=== PATIENT | female | born 1970 | race Caucasian/White ===

== ENCOUNTER → 2019-03-25 | Outpatient (CLI) | payer OTHER ==
--- NOTE | 2019-03-25 11:07 | Diagnostic Imaging Report ---
INDICATION: Screening for osteoporosis. COMPARISON: None. FINDINGS: The bone mineral density of the hips and spine was measured. There are no prior studies available for comparison. The T-score for the spine is 1.6. The total T-score for the left hip is 0.5 and for the right hip is 0.0. The T-score for the left femoral neck is -0.8 and for the right femoral neck -1.0. All of these values are within normal limits. AP Spine L1-L4: [BMD (g/cm2): 1.396] [T-Score: 1.6] [Z-Score: 1.0] [BMD Previous: N/A] [BMD % Change: N/A] LT Hip Neck: [BMD (g/cm2): 0.922] [T-Score: -0.8] [Z-Score: -0.7] LT Hip Total: [BMD (g/cm2):1.068] [T-Score:0.5] [Z-Score: 0.2] [BMD Previous: N/A] [BMD % Change: N/A] RT Hip Neck: [BMD (g/cm2):0.898] [T-Score:-1.0] [Z-Score:-0.9] RT Hip Total: [BMD (g/cm2):1.004] [T-score:0.0] [Z-Score:-0.3] [BMD Previous:N/A] [BMD % Change:N/A] *Indicates significant change from prior examination based on 95% confidence level. World Health Organization criteria for BMD interpretation classify patients as Normal (T-score at or above -1.0), Osteopenic (T-score between -1.0 and -2.5) or Osteoporotic (T-score at or below -2.5). LIMITATIONS AND MODIFICATION: None. FRACTURE RISK (FRAX SCORE): The ten year probability of (%): Major Osteoporotic Fracture: [N/A] Hip Fracture: [N/A] IMPRESSION: 1. The bone mineral density of the hips and spine is within normal limits. 2. See below National Osteoporosis Foundation guidelines on when to potentially initiate pharmacologic therapy. Based on the National Osteoporosis Foundation Guidelines, pharmacologic treatment should be initiated in any of the following, unless clinical conditions suggest otherwise: * Any patient with prior fragility fracture of the hip or vertebrae. A spine fracture indicates 5X risk for subsequent spine fracture and 2X risk for subsequent hip fracture. * Osteoporosis (T-score <-2.5). * Postmenopausal women and men age 50 and older with low bone mass/osteopenia (T-score between -1.0 and -2.5) by DXA and 10-year major osteoporotic fracture greater than 20% or a 10-year probability of hip fracture greater than 3%. These fracture risks are supplied above in the FRAX score, if applicable. * Clinician judgement and/or patient preferences may indicate treatment for people with 10-year fracture probabilities above or below these levels. Dictated by: Dictated on workstation # [id number]
--- NOTE | 2019-03-26 08:19 | Diagnostic Imaging Report ---
Digital mammogram. Bilateral screening. There are no prior studies available for comparison. At this time there are no current complaints. The fibroglandular tissue in both breasts is heterogeneously dense. This does limit the sensitivity of this exam. In the far upper outer aspect of the left breast there is a well-circumscribed 5 mm nodular density. This is most likely a lymph node as several other similar appearing lymph nodes are also seen overlying the left axilla. However in the 9 o'clock position of the left breast at middle depth there is a well-circumscribed 17 mm nodular density. I suspect that this is a benign process such as a cyst. Even so, ultrasound would be recommended to better characterize this finding. There is no primary or secondary sign of malignancy noted. Impression: Ultrasound would be recommended to better characterize the benign-appearing nodular density in the medial aspect of the left breast. ACR BI-RADS Category 0: Incomplete. (Needs additional imaging evaluation). Result letter will be mailed to the patient. Note: At least 10% of breast cancer is not imaged by mammography. Dictated by: Dictated on workstation # [id number]
== END ==
LOC: RAD 09:57
PROVIDERS: ATTEND Obstetrics & Gynecology
DX: Z12.31 Encounter for screening mammogram for malignant neoplasm of breast (principal); Z13.820 Encounter for screening for osteoporosis; R92.8 Other abnormal and inconclusive findings on diagnostic imaging of breast; Z78.0 Asymptomatic menopausal state
CPT/HCPCS: 77067; 77080

== ENCOUNTER → 2019-04-14 | Outpatient (CLI) | payer OTHER ==
--- NOTE | 2019-04-14 11:49 | Diagnostic Imaging Report ---
INDICATION: Abnormal screening mammogram. This study is performed for further evaluation. Correlation is made with the screening mammogram from 03/25/2019. Sonographic interrogation of the inner left breast was performed. There is a smoothly marginated, macrolobulated solid mass at the 9:00 location of the left breast, 5 cm from the nipple. This measures 1.7 x 0.9 x 1.1 cm. No shadowing is seen. No microcalcifications are identified. This does correlate in size and location to the mammographic density. IMPRESSION: BI-RADS 3 Solid, smoothly marginated and macro lobulated mass at the 9:00 location of the left breast, 5 cm from the nipple. This correlates in size and location to the mammographic density. 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 Even so, follow-up left breast ultrasound in 6 months is recommended to confirm stability. ACR BI-RADS Category 3: Probably benign findings. Dictated by: Dictated on workstation # [id number]
== END ==
LOC: RAD 10:06
PROVIDERS: ATTEND Obstetrics & Gynecology
DX: N63.25 Unspecified lump in the left breast, overlapping quadrants (principal)
CPT/HCPCS: 76642

== ENCOUNTER → 2019-06-20 | Outpatient (CLI) | payer OTHER ==
[~2019-06-20] VITALS: Ht 167.7 cm; Wt 103.2 kg
[~2019-06-20] MED LIST: LIDOCAINE 1% INJ 20 ML 20 ML VIAL INJ ONE
--- NOTE | 2019-06-20 11:52 | Diagnostic Imaging Report ---
EXAM: Diagnostic left mammogram The patient underwent an ultrasound-guided biopsy just prior to the study of the nodular density in the medial aspect of the left breast seen on the prior exam of 03/25/2019. The localization clip is immediately adjacent to the nodule. IMPRESSION: The localization clip is immediately adjacent to the nodule in question. A final pathology report is pending. Dictated by: Dictated on workstation # [id number]
--- NOTE | 2019-06-20 12:29 | Diagnostic Imaging Report ---
EXAM: Ultrasound-guided biopsy, left breast. INDICATION: Left breast mass The left breast ultrasound exam performed on 04/14/2019 noted a smoothly marginated 1.7 x 0.9 x 1.1 cm solid mass in the 9 o'clock position of the left breast. Following aseptic preparation of the skin and administration of local anesthesia, this area was biopsied using a 14-gauge Achieve needle. Three passes were made. Subsequently, a clip was inserted into the biopsy site. The patient tolerated the procedure well and was dismissed in good condition. IMPRESSION: There has beenultrasound a successful-guided biopsy of the left breast. Final pathology report is pending. Dictated by: Dictated on workstation # [id number]
== END ==
LOC: RAD 08:23
PROVIDERS: ATTEND Surgery
DX: N63.20 Unspecified lump in the left breast, unspecified quadrant (principal); Z98.890 Other specified postprocedural states
CPT/HCPCS: 19083

== ENCOUNTER → 2019-10-08 | Outpatient (CLI) | payer OTHER ==
--- NOTE | 2019-10-08 09:38 | Diagnostic Imaging Report ---
INDICATION: Left breast nodule. Patient presents for follow-up. Correlation is made with prior left breast ultrasound from 04/14/2019. Smoothly marginated and lobulated solid nodule 9:00 location of the left breast, 5 cm from the nipple is again noted. This measures 1.5 x 0.9 x 1.0 cm. As compared to 1.7 x 0.9 x 1.1 cm on prior. This has been previously biopsied. No new masses detected. IMPRESSION: BI-RADS Category 2 Stable left breast nodule consistent with fibroadenoma when compared to examination from 04/14/2019. ACR BI-RADS Category 2: Benign findings. Dictated by: Dictated on workstation # [id number]
== END ==
LOC: RAD 08:25
PROVIDERS: ATTEND Surgery
DX: N63.20 Unspecified lump in the left breast, unspecified quadrant (principal)
CPT/HCPCS: 76642

== ENCOUNTER → 2021-03-16 | Outpatient (CLI) | payer OTHER ==
--- NOTE | 2021-03-17 09:46 | Diagnostic Imaging Report ---
Indication: Routine screening. Comparison is made prior mammogram 03/25/2019, 06/22/2019. 2-D and 3-D bilateral screening mammography was performed with CAD. Scattered fibroglandular densities are identified bilaterally. Smoothly marginated nodule in the medial left breast containing a marker clip is again noted and appears stable. A smaller nodules in the central and lateral left breast also appears stable. The right breast is unremarkable. No spiculated mass or malignant appearing microcalcifications are seen. Axillae are unremarkable. IMPRESSION: BI-RADS Category 2 No mammographic features suspicious for malignancy are identified. ACR BI-RADS Category 2: Benign findings. Result letter will be mailed to the patient. Note: At least 10% of breast cancer is not imaged by mammography. Dictated by: Dictated on workstation # [id number]
== END ==
LOC: RAD 15:45
PROVIDERS: ATTEND Obstetrics & Gynecology
DX: Z12.31 Encounter for screening mammogram for malignant neoplasm of breast (principal)
CPT/HCPCS: 77063; 77067

== ENCOUNTER → 2021-03-29 | Outpatient (CLI) | payer OTHER ==
--- NOTE | 2021-03-29 10:46 | Diagnostic Imaging Report ---
INDICATION: Postmenopausal COMPARISON: 03/25/2019 FINDINGS: The bone mineral density of the spine and hips and femoral necks was measured. The total T score for the spine is 1.3. On the prior exam the T score is 1.6. The total T score for the left hip is 0.3 and for the right hip -0.2. On the prior exam the respective T-scores were 0.5 and 0.0. The T score for the left femoral neck is -1.2 and for the right femoral neck -1.3. Previously the respective T scores were -0.8 and -1.0. AP Spine L1-L4: [BMD (g/cm2): 1.351] [T-Score: 1.3] [Z-Score: 0.7] [BMD Previous: 1.396] [BMD % Change: -3.2] LT Hip Neck: [BMD (g/cm2): 0.864] [T-Score: -1.2] [Z-Score: -1.1] LT Hip Total: [BMD (g/cm2):1.044] [T-Score:0.3] [Z-Score: 0.0] [BMD Previous: 1.068] [BMD % Change: -2.2] RT Hip Neck: [BMD (g/cm2):0.855] [T-Score:-1.3] [Z-Score:-1.2] RT Hip Total: [BMD (g/cm2):0.980] [T-score:-0.2] [Z-Score:-0.5] [BMD Previous:1.004] [BMD % Change:-2.4] *Indicates significant change from prior examination based on 95% confidence level. World Health Organization criteria for BMD interpretation classify patients as Normal (T-score at or above -1.0), Osteopenic (T-score between -1.0 and -2.5) or Osteoporotic (T-score at or below -2.5). LIMITATIONS AND MODIFICATION: None. FRACTURE RISK (FRAX SCORE): The ten year probability of (%): Major Osteoporotic Fracture: [NA] Hip Fracture: [NA] IMPRESSION: 1. The bone density of the spine and hips has not changed significantly. There has been a slight decrease but the values do remain within normal limits. 2. However, there is now mild osteopenia of both femoral necks. 3. See below National Osteoporosis Foundation guidelines on when to potentially initiate pharmacologic therapy. Based on the National Osteoporosis Foundation Guidelines, pharmacologic treatment should be initiated in any of the following, unless clinical conditions suggest otherwise: * Any patient with prior fragility fracture of the hip or vertebrae. A spine fracture indicates 5X risk for subsequent spine fracture and 2X risk for subsequent hip fracture. * Osteoporosis (T-score <-2.5). * Postmenopausal women and men age 50 and older with low bone mass/osteopenia (T-score between -1.0 and -2.5) by DXA and 10-year major osteoporotic fracture greater than 20% or a 10-year probability of hip fracture greater than 3%. These fracture risks are supplied above in the FRAX score, if applicable. * Clinician judgement and/or patient preferences may indicate treatment for people with 10-year fracture probabilities above or below these levels. Dictated by: Dictated on workstation # [id number]
== END ==
LOC: RAD 09:30
PROVIDERS: ATTEND Obstetrics & Gynecology
DX: Z78.0 Asymptomatic menopausal state (principal)
CPT/HCPCS: 77080